=== PATIENT | male | born 1955 | race Caucasian/White ===

== ENCOUNTER 2019-09-05 09:56 | Emergency (ER) | payer OTHER ==
[~2019-09-05] VITALS: Ht 172.7 cm; Wt 102.5 kg
[2019-09-05] MEDS ORDERED: Motrin,Rufen800 MG PO (11:38)
== END 2019-09-05 11:47 | disposition home or self-care (01) ==
LOC: ED 09:56
DX: S40.012A Contusion of left shoulder, initial encounter (principal); M54.2 Cervicalgia; F17.200 Nicotine dependence, unspecified, uncomplicated; V63.5XXA Driver of heavy transport vehicle injured in collision with car, pick-up truck or van in traffic accident, initial encounter; Y93.89 Activity, other specified; Y92.488 Other paved roadways as the place of occurrence of the external cause; Y99.8 Other external cause status

== ENCOUNTER 2019-09-25 10:58 | Emergency (ER) | payer OTHER ==
[~2019-09-25] VITALS: Ht 172.7 cm; Wt 104.3 kg
[~2019-09-25 10:58] MED LIST: Motrin,Rufen800 MG PO
[2019-09-25 12:16] LABS: BUN 15 mg/dl (7-24); CHLORIDE 105 mmol/L (98-107); CREATININE 1.06 mg/dL (0.70-1.30); SODIUM 138 mmol/L (136-145)
[2019-09-25] MEDS ORDERED: IBU800 MG PO (13:52)
== END 2019-09-25 11:48 | disposition home or self-care (01) ==
LOC: ED 10:58
PROVIDERS: Nurse Practitioner Family
DX: M75.42 Impingement syndrome of left shoulder (principal); Z79.899 Other long term (current) drug therapy

== ENCOUNTER → 2019-10-31 | Outpatient (CLI) | payer OTHER ==
[~2019-10-31] MED LIST changes: +IBU800 MG PO
== END | disposition home or self-care (01) ==
LOC: MRI 10-27 09:00
DX: S46.912A Strain of unspecified muscle, fascia and tendon at shoulder and upper arm level, left arm, initial encounter (principal); M67.814 Other specified disorders of tendon, left shoulder; X58.XXXA Exposure to other specified factors, initial encounter; Y93.89 Activity, other specified; Y92.89 Other specified places as the place of occurrence of the external cause; Y99.8 Other external cause status

== ENCOUNTER → 2019-11-18 | Outpatient (CLI) | payer OTHER | END | disposition home or self-care (01) | LOC: CARD 16:26 | DX: I21.09 ST elevation (STEMI) myocardial infarction involving other coronary artery of anterior wall (principal); M75.102 Unspecified rotator cuff tear or rupture of left shoulder, not specified as traumatic ==